=== PATIENT | female | born 1950 ===

== ENCOUNTER → 2016-11-05 | Outpatient (CLI) | payer BC | LOC: FIMAGING 13:14 | PROVIDERS: ATTEND Internal Medicine | DX: M16.0 Bilateral primary osteoarthritis of hip (principal) ==

== ENCOUNTER → 2016-12-09 | Outpatient (CLI) | payer BC | LOC: FIMAGING 13:52 | PROVIDERS: ATTEND Surgery | DX: R10.32 Left lower quadrant pain (principal); G89.29 Other chronic pain ==

== ENCOUNTER → 2017-02-09 | Outpatient (CLI) | payer OTHER | LOC: BHFA 14:00 | PROVIDERS: ATTEND Internal Medicine Interventional Cardiology | DX: R01.1 Cardiac murmur, unspecified (principal); R07.9 Chest pain, unspecified; I34.9 Nonrheumatic mitral valve disorder, unspecified ==

== ENCOUNTER → 2017-06-23 | Outpatient (CLI) | payer OTHER | LOC: FIMAGING 11:36 | PROVIDERS: ATTEND Internal Medicine | DX: Z12.31 Encounter for screening mammogram for malignant neoplasm of breast (principal) ==

== ENCOUNTER → 2017-11-29 | Outpatient (CLI) | payer OTHER | LOC: FIMAGING 14:49 | PROVIDERS: ATTEND Internal Medicine | DX: M25.511 Pain in right shoulder (principal); M79.631 Pain in right forearm; W19.XXXD Unspecified fall, subsequent encounter ==

== ENCOUNTER → 2018-07-15 | Outpatient (CLI) | payer OTHER | LOC: FIMAGING 13:05 | PROVIDERS: ATTEND Internal Medicine | DX: Z12.31 Encounter for screening mammogram for malignant neoplasm of breast (principal) ==